=== PATIENT | female | born 1950 | race Caucasian/White ===

== ENCOUNTER 2017-10-17 16:35 | Emergency (ER) | payer MEDICARE, OTHER ==
--- NOTE | 2017-10-17 17:02 | ED Physician Documentation ---
General Adult - HISTORIAN Historian: patient, spouse - HPI Stated Complaint: WEAKNESS Chief Complaint: General Adult Onset: hours Timing: still present Severity: moderate Further Comments: yes (Pt is a 67 yo female who c/o sx she finds difficult to describe. She feels like her "legs don't work." She feels out of sorts and off balance. She began to feel this way this morning and sx's have been worsening all day. says she appears off balance. Pt does not have specific complaints. No cp, sob, nausea. No focal numbness or weakness. No headache. Pt has hx HTN and found her SBP to be 180 on home monitor earlier today. Pt recently started Meloxicam for R shoulder pain. Pt is also on Namenda.) - ROS CONST: other ("off balance" "out of sorts") EYES/ENT: none CVS/RESP: none GI/: none MS/SKIN/LYMPH: none NEURO/PSYCH: difficulty walking - PAST HX Past History: hypertension, other (R shoulder pain, rotator injury.) - SOCIAL HX Smoking History: cigarettes Alcohol Use: none Drug Use: none - FAMILY HX Family History: No - VITAL SIGNS Vital Signs: Vital Signs Temp Pulse Resp BP Pulse Ox 97.4 F L 72 22 168/91 97 10/17/17 16:48 10/17/17 16:57 10/17/17 16:48 10/17/17 16:48 10/17/17 16:57 - REVIEWED ASSESSMENTS Nursing Assessment Reviewed: Yes Vitals Reviewed: Yes <Humberto Bain - Last Filed: 10/17/17 19:14> - VITAL SIGNS Vital Signs: Vital Signs Temp Pulse Resp BP Pulse Ox 97.4 F L 78 18 162/80 97 10/17/17 16:48 10/17/17 17:39 10/17/17 17:39 10/17/17 17:39 10/17/17 17:39 <Willy Phillips - Last Filed: 10/17/17 21:06> - PAST HX Allergies/Adverse Reactions: Allergies Allergy/AdvReac Type Severity Reaction Status Date / Time No Known Allergies Allergy Verified 10/17/17 16:56 Home Medications: Ambulatory Orders Medication Instructions Recorded Acetylcarnitine [Acetyl 500 mg PO DAILY 05/11/16 l-Carnitine] Aspirin [Adult Low Dose Aspirin EC] 81 mg PO DAILY 05/11/16 Calcium Carbonate/Vitamin D3 1 tab PO DAILY 05/11/16 [Calcium 600 + Vit D3 Caplet] Meloxicam [Mobic] 15 mg D 10/17/17 Memantine HCl [Namenda] 10 mg D 10/17/17 Multivitamin [Zoo Chews] 1 each D 10/17/17 Progress - Progress Progress: CT head w/o contrast: Mastoid air cells and the visible sinuses are clear. No visible skull fractures. No visible intracranial bleed, acute infarct, midline shift or hydrocephalus. No visible tumor mass. Small vessel disease in the periventricular zone is noted. Impression: Mild small vessel disease. No bleeding or acute intracranial abnormalities. Metoprolol 50 mg PO. Care transferred to Dr. Phillips at 1900. - EKG/XRAY/CT EKG: NSR (HR=74; normal EKG.) <Humberto Bain - Last Filed: 10/17/17 19:14> ED Results Lab/Radiology - Orders Orders: ED Orders Category Date Time Status Continuous EKG monitoring Q30M Care 10/17/17 16:56 Ordered Continuous Pulse Oximetry Q30M Care 10/17/17 16:[address] IV Lock 1T Care 10/17/17 16:56 Ordered CBC/PLATELET/DIFF Routine Lab 10/17/17 16:56 Ordered CKMB Stat Lab 10/17/17 Ordered CMP Routine Lab 10/17/17 16:56 Ordered CREATINE KINASE Routine Lab 10/17/17 16:56 Ordered TROPONIN I (cTnI) Stat Lab 10/17/17 16:56 Ordered UA [URINALYSIS] Routine Lab 10/17/17 Ordered NORMAL SALINE @ 500 MLS/HR(500ml BOLUS) Med 10/17/17 16:56 Ordered 0.9 % Sodium Chloride [Normal Saline] 500 ml IV NOW Oxygen Daily Oxygen 10/17/17 17:00 Ordered EKG WITH COMPARISON Stat Ther 10/17/17 16:56 Ordered <Humberto Bain - Last Filed: 10/17/17 19:14> - Lab Results Lab Results: Lab Results 10/17/17 10/17/17 10/17/17 17:01 17:01 17:01 WBC 5.80 K/ul K/ul (4.00-12.00) RBC 4.79 M/ul M/ul (3.90-5.20) Hgb 14.9 g/dL g/dL (12.0-16.0) Hct 44.7 % % (34.5-46.5) MCV 93.3 fl fl (80.0-100.0) MCH 31.2 pg pg (28.0-34.0) MCHC 33.5 g/dL g/dL (30.0-36.0) RDW 13.9 % % (11.3-14.3) Plt Count 309 K/mm3 K/mm3 (130-400) Neut % (Auto) 54.4 % % (39.0-79.0) Lymph % (Auto) 33.1 % % (16.0-50.0) [place] % (Auto) 5.8 % % (0.0-11.0) Eos % (Auto) 2.9 % % (0.0-6.8) Baso % (Auto) 1.1 (0.0-1.5) Neut # (Auto) 3.1 # k/uL # k/uL (1.4-7.7) Lymph # (Auto) 1.9 # k/uL # k/uL (0.6-4.0) [place] # (Auto) 0.3 # k/uL # k/uL (0.0-0.9) Eos # (Auto) 0.2 # k/uL # k/uL (0.0-0.6) Baso # (Auto) 0.1 # k/uL # k/uL (0.0-0.5) Reactive Lymphs % 2.7 % % (0.0-5.0) Reactive Lymphs # 0.2 # k/uL # k/uL (0.0-0.8) Sodium 144 mmol/L mmol/L (136-145) Potassium 3.4 mmol/L L mmol/L (3.5-5.1) Chloride 104 mmol/L mmol/L (98-107) Carbon Dioxide 27 mmol/L mmol/L (22-30) BUN 12 mg/dL mg/dL (7-17) Creatinine 0.80 mg/dL mg/dL (0.52-1.04) Estimated Creat Clear 94 Est GFR ( Amer) > 60 (60 - ) Est GFR (Non-Af Amer) > 60 (60 - ) Glucose 109 mg/dL H mg/dL (74-106) Calcium 9.5 mg/dL mg/dL (8.4-10.2) Total Bilirubin 1.0 mg/dL mg/dL (0.2-1.3) AST 29 U/L U/L (15-46) ALT 30 U/L U/L (13-69) Alkaline Phosphatase 91 U/L U/L (38-126) Creatine Kinase 83 U/L U/L (30-135) CK-MB (CK-2) 1.4 ng/mL ng/mL (0.0-5.6) Troponin I < 0.03 ng/mL L ng/mL (0.03-0.06) Total Protein 8.0 g/dL g/dL (6.3-8.2) Albumin 4.4 g/dL g/dL (3.5-5.0) - Orders Orders: ED Orders Category Date Time Status Continuous EKG monitoring Q30M Care 10/17/17 16:56 Active Continuous Pulse Oximetry Q30M Care 10/17/17 16:[address] IV Lock 1T Care 10/17/17 16:[address] BRAIN W/O CONTRAST Stat Exams 10/17/17 Completed CBC/PLATELET/DIFF Routine Lab 10/17/17 17:01 Completed CKMB Stat Lab 10/17/17 17:01 Completed CMP Routine Lab 10/17/17 17:01 Completed CREATINE KINASE Routine Lab 10/17/17 17:01 Completed TROPONIN I (cTnI) Stat Lab 10/17/17 17:01 Completed UA [URINALYSIS] Routine Lab 10/17/17 Ordered 0.9 % Sodium Chloride [Normal Saline] 500 ml Med 10/17/17 16:56 Discontinued IV NOW Metoprolol Tartrate [Lopressor] Med 10/17/17 18:39 Discontinued 50 mg PO NOW ONE Oxygen Daily Oxygen 10/17/17 17:00 Ordered EKG WITH COMPARISON Stat Ther 10/17/17 16:56 Ordered <Willy Phillips - Last Filed: 10/17/17 21:06> General Adult Physical Exam - PHYSICAL EXAM GENERAL APPEARANCE: moderate distress EENT: eye inspection normal, pharynx normal NECK: normal inspection, supple RESPIRATORY: no resp distress, chest non-tender, breath sounds normal CVS: reg rate & rhythm, heart sounds normal ABDOMEN: soft, no organomegaly, normal bowel sounds BACK: normal inspection, no CVA tenderness SKIN: warm/dry, normal color EXTREMITIES: non-tender, normal range of motion, no evidence of injury NEURO: oriented X3, CN's nml as tested, motor nml, sensation nml, other (normal cerebellar testing, Rhomberg neg, heel to chandler, normal, pronation/suppination normal. Able to spell WORLD backwards.) <Humberto Bain - Last Filed: 10/17/17 19:14> Discharge <Humberto Bain - Last Filed: 10/17/17 19:14> Decision to Admit: NO Date of Decison to Admit: 10/17/17 Decision Time: 19:40 <Willy Phillips - Last Filed: 10/17/17 21:06> Clincal Impression: elevated blood pressure, dysphoria Referrals: Renea Holloway MD [Primary Care Provider] - Additional Instructions: Continue with present medication. Chelsea will be given a script for Lisinopril 10mg once a day script to take if BP continues to run > 150/90. Try taking some Aleve 220mg tab twice a day to see if it will help with your discomfort. Followup with your primary care provider if needed. Condition: Stable Disposition: 01 HOME, SELF-CARE
[2017-10-17 17:18] LABS: BASOPHILS % 1.1 (0.0-1.5); EOSINOPHILS % 2.9 % (0.0-6.8); MEAN CORPUSCULAR HEMOGLOBIN 31.2 pg (28.0-34.0); MEAN CORPUSCULAR VOLUME 93.3 fl (80.0-100.0); MONOCYTES % 5.8 % (0.0-11.0); NEUTROPHILS # 3.1 # k/uL (1.4-7.7)
[2017-10-17] MEDS: 0.9 % SODIUM CHLORIDE 500 ML IV ONE (17:19)
[2017-10-17 17:27] LABS: eGFR (African) > 60; eGFR (Non-African) > 60
[2017-10-17] MEDS: METOPROLOL TARTRATE 50 MG TABLET PO ONE (18:51)
--- NOTE | 2017-10-17 18:57 | Diagnostic Imaging Report ---
[facility] [address] [facility] [address] [place], [place]. [address] Report Submission Date: Oct 17, 2017 6:29:13 PM CDT Patient Study Name: KAREN IGNACIO Date: Oct 17, 2017 5:42:39 PM CDT Modality Type: CT\SR Gender: F Description: CT BRAIN W/O CONTRAST : 50 Institution: [facility] Physician: JA VALLADARES CT brain without IV contrast Clinical history: Dizziness for 4 days Radiation dose DLP 669 Mastoid air cells and the visible sinuses are clear. No visible skull fractures. No visible intracranial bleed, acute infarct, midline shift or hydrocephalus. No visible tumor mass. Small vessel disease in the periventricular zone is noted. Impression: Mild small vessel disease No bleeding or acute intracranial abnormalities . Electronically signed on Oct 17, 2017 6:29:13 PM CDT by: Willy DEL VALLE
[2017-10-17 19:59] VITALS: BP 145/81
[2017-10-18 07:04] LABS: APPEARANCE,URINE CLEAR (CLEAR); COLOR,URINE YELLOW (YELLOW); OCCULT BLOOD,URINE NEGATIVE (NEGATIVE); PH URINE 7.5 (5.0 - 8.0); UROBILINOGEN URINE 0.2 Eu (0.2-1.0)
== END 2017-10-17 19:50 | disposition home or self-care (01) ==
LOC: ED 16:35
DX: M25.511 Pain in right shoulder (principal); I10 Essential (primary) hypertension
CPT/HCPCS: 70450; 80053; 81002; 82550; 82553; 84484; 85025; 96365; 99283; J7060; S1016

== ENCOUNTER 2018-05-09 10:13 | Emergency (ER) | payer MEDICARE, OTHER ==
--- NOTE | 2018-05-09 10:30 | ED Physician Documentation ---
Skin Rash - HISTORIAN Historian: patient - HPI Stated Complaint: rash she is concerned is shingles Chief Complaint: Skin Rash Front/Back of Body, Lg ([place]): 1 - vesicles on left lower back Onset: days ago (3) Timing: still present Duration: worse Location: other (left lower back ) Quality: itchy, painful, burning Identified Cause?: Yes (shingles ) Context: Medication Exposure: none - ROS CONST: none - PAST HX Past History: other ("memory pill" ) Immunizations: UTD Allergies/Adverse Reactions: Allergies Allergy/AdvReac Type Severity Reaction Status Date / Time No Known Drug Allergies Allergy Unverified 08/31/12 13:54 Home Medications: Ambulatory Orders Medication Instructions Recorded Aspirin [Adult Low Dose Aspirin EC] 81 mg PO DAILY 05/11/16 Calcium Carbonate/Vitamin D3 1 tab PO DAILY 05/11/16 [Calcium 600 + Vit D3 Caplet] Memantine HCl [Namenda] 10 mg D 10/17/17 Multivitamin [Zoo Chews] 1 each D 10/17/17 - SOCIAL HX Smoking History: non-smoker Alcohol Use: none Drug Use: none - FAMILY HX Family History: none - VITAL SIGNS Vital Signs: Vital Signs Temp Pulse Resp BP Pulse Ox 97.1 F L 84 18 150/50 99 05/09/18 10:15 05/09/18 10:46 05/09/18 10:46 05/09/18 10:46 05/09/18 10:46 - REVIEWED ASSESSMENTS Nursing Assessment Reviewed: Yes Vitals Reviewed: Yes Skin Rash Physical Exam - EXAM General Appearance: no acute distress, alert Skin: warm,dry Location: other (left lower back ) Character: vesicular, other (small patch ) Symptoms: tenderness, crusting Extremities: non-tender Neck: trachea midline Respiratory: no resp distress, chest non-tender, breath sounds normal CVS: reg. rate & rhythm, heart sounds nml Abdomen: non-tender Neuro/Psych: oriented x3 Discharge Clincal Impression: Shingles Qualifiers: Herpes zoster complications: without complications Qualified Code(s): B02.9 - Zoster without complications Referrals: Renea Holloway MD [Primary Care Provider] - 2 Days Additional Instructions: 1. Acyclovir 800 mg Take 1 by mouth five times per day x 7 days 2. Neurontin 300 mg take 1 by mouth twice per day as needed for pain 3. Medrol dose pack as directed 4. do not pick at rash 5. See PCP in 2-4 days 6. Return to ER for any concerns Condition: Stable Disposition: 01 HOME, SELF-CARE Decision to Admit: NO Date of Decison to Admit: 05/09/18 Decision Time: 10:42
[2018-05-09 10:49] VITALS: BP 150/50
== END 2018-05-09 10:46 | disposition home or self-care (01) ==
LOC: ED 10:13
DX: B02.9 Zoster without complications (principal)
CPT/HCPCS: 99283

== ENCOUNTER 2018-05-29 22:57 | Emergency (ER) | payer MEDICARE, OTHER ==
[2018-05-29] MEDS ORDERED: KETOROLAC TROMETHAMINE 60 MG/2 ML VIAL IM ONE (23:21)
[2018-05-29] MEDS ORDERED: methylPREDNISolone SOD SUCC 125 MG/2 ML VIAL IM ONE (23:23)
--- NOTE | 2018-05-29 23:26 | ED Physician Documentation ---
Hip Injury/Pain - HISTORIAN Historian: patient, spouse - HPI Stated Complaint: "My left hip/leg/foot hurt" Chief Complaint: Hip Pain Additional Information: Patient presents with a 1 day history of posterior left hip pain radiating down back of leg to knee/foot. She states she cannot get comfortable. The pain is 10/10, burning pain with periods of sharp stabbing moments. She had Shingles about 10 days ago and completed the medication. The lesions were on her posterior hip. Onset: hours (24) Where: home Severity: severe Duration: worse, persistent since Context: no injury Symptoms Prior to Fall: denies: fever - ROS CONST: denies: no problems RESP: denies: shortness of breath GI/: denies: none EYES/ENT: denies: none MS/SKIN/LYMPH: denies: neck pain NEURO/PSYCH: denies: confusion - PAST HX Cardiac Disease: none PE Risk Factors: none Surgeries/Procedures: none Allergies/Adverse Reactions: Allergies Allergy/AdvReac Type Severity Reaction Status Date / Time No Known Drug Allergies Allergy Verified 05/29/18 23:14 Home Medications: Ambulatory Orders Medication Instructions Recorded Aspirin [Adult Low Dose Aspirin EC] 81 mg PO DAILY 05/11/16 Calcium Carbonate/Vitamin D3 1 tab PO DAILY 05/11/16 [Calcium 600 + Vit D3 Caplet] Memantine HCl [Namenda] 10 mg D 10/17/17 Multivitamin [Zoo Chews] 1 each D 10/17/17 Gabapentin 300 mg PO TID #90 capsule 05/29/18 predniSONE [Deltasone] 20 mg PO DIRECTED #20 tablet 05/29/18 - SOCIAL HX Smoking History: non-smoker Alcohol Use: none Drug Use: none - FAMILY HX Family History: No - VITAL SIGNS Vital Signs: Vital Signs Temp Pulse Resp BP Pulse Ox 97.8 F 73 12 176/89 97 05/29/18 23:09 05/29/18 23:09 05/29/18 23:09 05/29/18 23:09 05/29/18 23:09 - REVIEWED ASSESSMENTS Nursing Assessment Reviewed: Yes Vitals Reviewed: Yes ED Results Lab/Radiology - Radiology Radiology Impressions: Three-view lumbar spine Clinical history: Left hip pain for 1 day. Findings: Examination of the lumbar spine in AP, lateral and lateral coned-down views demonstrates degenerative anterolisthesis at L4-5 measuring 3 mm. Vertebrae are otherwise anatomically aligned. The pedicles are intact and the paravertebral soft tissues are within normal limits. Small posterior osteophytes are seen at L3-4. Impression: 1. Spondylosis. 2. Degenerative anterolisthesis at L4-5. 3. No fracture. Electronically signed on May 29, 2018 11:47:34 PM SALES AND BUSINESS DEVELOPMENT MANAGER by: Colten Ewing Two views of the left hip Clinical history: Left hip pain for 1 day. Findings: Examination left hip in AP and frog-leg lateral views demonstrates degenerative changes with slight narrowing of the hip joint space and osteophyte formation. There is no evident fracture and no lytic or blastic lesion. Impression: 1. Degenerative changes. 2. Fracture. Electronically signed on May 29, 2018 11:50:43 PM SALES AND BUSINESS DEVELOPMENT MANAGER by: Colten Ewing Addendum: The 2nd impression should read 2. No fracture. Addendum electronically signed by Colten Ewing on May 29, 2018 11:57:40 PM SALES AND BUSINESS DEVELOPMENT MANAGER - Orders Orders: ED Orders Category Date Time Status LT HIP 2VIEW COMPLETE [RAD] Stat Exams 05/29/18 Completed LUMBAR SPINE XR 2 OR 3 VIEWS [L SPINE 2 OR 3 VIEWS] [ Exams 05/29/18 Completed RAD] Stat Gabapentin [Neurontin] Med 05/30/18 23:22 Once 300 mg PO NOW ONE Ketorolac Tromethamine [Toradol] Med 05/29/18 23:21 Discontinued 60 mg IM NOW ONE methylPREDNISolone SOD SUCC [Solu-MEDROL] Med 05/29/18 23:23 Discontinued 125 mg IM NOW ONE Hip Injury/Pain Physical Exam - EXAM General Appearance: alert, mild distress Extremities: non-tender, nml ROM, no pedal edema EENT: BARRETT Neck: non-tender Respiratory: chest non-tender, breath sounds nml CVS: reg rate & rhythm, heart sounds normal Abdomen: non-tender Back: non-tender Skin: warm/dry, other (healing rash over left posterior iliac crest ) Neuro/Psych: oriented x3, mood/affect nml Discharge Clincal Impression: Post herpetic neuralgia Prescriptions: Gabapentin 300 mg PO TID #90 capsule predniSONE [Deltasone] 20 mg PO DIRECTED #20 tablet Referrals: Renea Holloway MD [Primary Care Provider] - 2 Days Condition: Stable Disposition: 01 HOME, SELF-CARE Decision to Admit: NO Date of Decison to Admit: 05/29/18 Decision Time: 00:00
--- NOTE | 2018-05-29 23:48 | Diagnostic Imaging Report ---
ABIGAIL DODSON [facility] [address] [facility] [address] [address] Report Submission Date: May 29, 2018 11:47:34 PM HOME SERVICE ADVISOR Patient Study Name: KAREN IGNACIO Date: May 29, 2018 11:23:59 PM HOME SERVICE ADVISOR Modality Type: DX Gender: F Description: SPINE : 50 Institution: [facility] Physician: ABIGAIL DODSON Three-view lumbar spine Clinical history: Left hip pain for 1 day. Findings: Examination of the lumbar spine in AP, lateral and lateral coned-down views demonstrates degenerative anterolisthesis at L4-5 measuring 3 mm. Vertebrae are otherwise anatomically aligned. The pedicles are intact and the paravertebral soft tissues are within normal limits. Small posterior osteophytes are seen at L3-4. Impression: 1. Spondylosis. 2. Degenerative anterolisthesis at L4-5. 3. No fracture. Electronically signed on May 29, 2018 11:47:34 PM HOME SERVICE ADVISOR by: Colten DEL VALLE
--- NOTE | 2018-05-29 23:52 | Diagnostic Imaging Report ---
ABIGAIL DODSON [facility] [address] [facility] [address] [address] Report Submission Date: May 29, 2018 11:50:43 PM AGRISCIENCE TECHNOLOGY INSTRUCTOR Patient Study Name: KAREN IGNACIO Date: May 29, 2018 11:19:31 PM AGRISCIENCE TECHNOLOGY INSTRUCTOR Modality Type: DX Gender: F Description: PELVIS : 50 Institution: [facility] Physician: ABIGAIL DODSON Two views of the left hip Clinical history: Left hip pain for 1 day. Findings: Examination left hip in AP and frog-leg lateral views demonstrates degenerative changes with slight narrowing of the hip joint space and osteophyte formation. There is no evident fracture and no lytic or blastic lesion. Impression: 1. Degenerative changes. 2. Fracture. Electronically signed on May 29, 2018 11:50:43 PM AGRISCIENCE TECHNOLOGY INSTRUCTOR by: Colten DEL VALLE
[2018-05-30 00:17] VITALS: BP 150/71
[2018-05-30] MEDS ORDERED: GABAPENTIN 100 MG CAPSULE ONE (00:31)
[2018-05-30] MEDS ORDERED: GABAPENTIN 300 MG CAPSULE PO ONE (23:22)
== END 2018-05-30 00:20 | disposition home or self-care (01) ==
LOC: ED 22:57
DX: B02.29 Other postherpetic nervous system involvement (principal)
CPT/HCPCS: 72100; 73502; 96372; 99283; J1885; J2930